=== PATIENT | male | born 1975 | race Caucasian/White ===

== ENCOUNTER 2025-06-17 06:03 | Day surgery (SDC) | payer OTHER ==
[2025-04-21 15:06] VITALS: BMI 29.2
[2025-06-17] MEDS ORDERED: PROPOFOL 60 ML ONE (07:30)
[2025-06-17] MEDS ORDERED: SUCCINYLCHOLINE CHLORIDE 200 MG/10 ML SYRINGE ONE (07:30)
[2025-06-17] MEDS ORDERED: ONDANSETRON 4 MG/2 ML VIAL ONE (07:31)
[2025-06-17] MEDS ORDERED: GLYCOPYRROLATE 0.2 MG/1 ML VIAL ONE (07:31)
[2025-06-17] MEDS ORDERED: LIDOCAINE HCL/PF 2% SDV 5ML VIAL ONE (07:31)
[2025-06-17] MEDS ORDERED: DEXAMETHASONE SOD PHOSPHATE 4 MG/1 ML VIAL ONE (07:31)
[2025-06-17] MEDS ORDERED: KETOROLAC TROMETHAMINE 30 MG/1 ML VIAL ONE ×2 (07:31→09:53)
[2025-06-17] MEDS ORDERED: MIDAZOLAM HCL 2 MG/2 ML SINGLE DOSE VIAL ONE (07:32)
[2025-06-17] MEDS ORDERED: ROCURONIUM BROMIDE 50 MG/5 ML SYRINGE ONE ×2 (07:32→09:23)
[2025-06-17] MEDS ORDERED: SEVOFLURANE 250 ML BTL ONE (07:33)
[2025-06-17] MEDS: BUPIVACAINE HCL/PF 0.5% (5MG/ML) 10 ML VIAL IJ ONE (08:48)
[2025-06-17] MEDS ORDERED: BUPIVACAINE HCL/PF 0.5% (5MG/ML) 10 ML VIAL ONE (08:59)
[2025-06-17] MEDS ORDERED: ACETAMINOPHEN INJECTION 100 ML ONE (08:59)
[2025-06-17] MEDS ORDERED: SUGAMMADEX SODIUM 200 MG/2 ML VIAL ONE ×2 (09:53→10:02)
[2025-06-17 12:45] VITALS: RESP 16
[2025-06-17 13:03] VITALS: BP 158/98; PULSE 74; TEMP 98
== END 2025-06-17 13:30 | disposition home or self-care (01) ==
LOC: JASU-SURG 06:03
PROVIDERS: ATTEND Surgery
PROC: 0FT44ZZ Resection of Gallbladder, Percutaneous Endoscopic Approach (ICD-10-PCS; principal; 2025-06-17 08:49)
DX: K82.4 Cholesterolosis of gallbladder (principal)
CPT/HCPCS: 88304-TC; 94760